=== PATIENT | male | born 1955 ===

== ENCOUNTER → 2020-07-03 18:08 | Outpatient (CLI) | payer OTHER ==
[2020-07-03 19:06] LABS: BASOPHILS 0.9 % (0-2); EOSINOPHILS 7.8 % (0-7); HEMATOCRIT 39.8 % (42.0-54.0); HEMOGLOBIN 12.9 g/dL (13.5-17.5); LYMPHOCYTE ABS# 0.84 10x3/uL (1.32-3.57); LYMPHOCYTES 19.3 % (15-50); MCHC 32.4 g/dL (31.0-37.0); MCV 92.6 fL (80.0-100.0); MEAN PLATELET VOLUME 11.7 fL (7.4-10.4); MONOCYTES 16.1 % (2-11); NEUTROPHIL ABS# 2.43 10x3/uL (1.78-5.38); NEUTROPHILS 55.9 % (40-80); PLATELET COUNT 217 10x3/uL (130-400); RDW 16.8 % (11.5-14.5); WBC 4.4 10x3/uL (4.8-10.8)
[2020-07-03 19:21] LABS: ANION GAP 8.7 mmol/L (8-16); CALCIUM 7.9 mg/dL (8.5-10.1); CARBON DIOXIDE 29.3 mmol/L (21.0-32.0); CREATININE - SERUM 1.1 mg/dL (0.6-1.3)
== END | disposition home or self-care (01) ==
LOC: D.LABREF 18:08
PROVIDERS: ATTEND Student in an Organized Health Care Education/Training Program
DX: M46.22 Osteomyelitis of vertebra, cervical region (principal); L02.11 Cutaneous abscess of neck; K83.01 Primary sclerosing cholangitis; Z79.2 Long term (current) use of antibiotics

== ENCOUNTER → 2020-07-04 13:38 | Outpatient (CLI) | payer OTHER | END | disposition home or self-care (01) | LOC: D.LABREF 13:38 | PROVIDERS: ATTEND Student in an Organized Health Care Education/Training Program | DX: M46.22 Osteomyelitis of vertebra, cervical region (principal); L02.11 Cutaneous abscess of neck; Z79.2 Long term (current) use of antibiotics ==

== ENCOUNTER → 2020-07-08 18:20 | Outpatient (CLI) | payer OTHER ==
[2020-07-08 19:27] LABS: BASOPHILS 1.8 % (0-2); EOSINOPHILS 18.9 % (0-7); HEMATOCRIT 39.2 % (42.0-54.0); HEMOGLOBIN 12.8 g/dL (13.5-17.5); IMMATURE GRANULOCYTES 0.2 % (0-5); LYMPHOCYTE ABS# 0.88 10x3/uL (1.32-3.57); MCH 29.9 pg (26.0-34.0); MCHC 32.7 g/dL (31.0-37.0); MCV 91.6 fL (80.0-100.0); MEAN PLATELET VOLUME 12.3 fL (7.4-10.4); MONOCYTES 19.5 % (2-11); NEUTROPHIL ABS# 1.74 10x3/uL (1.78-5.38); NEUTROPHILS 39.6 % (40-80); RBC 4.28 10x6/uL (4.20-6.10); RDW 16.6 % (11.5-14.5); WBC 4.4 10x3/uL (4.8-10.8)
[2020-07-08 19:29] LABS: PLATELET COUNT 154 10x3/uL (130-400)
[2020-07-08 19:38] LABS: CALC OSMOLALITY 280 mosm/kg (275-300); CALCIUM 7.6 mg/dL (8.5-10.1); CARBON DIOXIDE 26.9 mmol/L (21.0-32.0); CHLORIDE - SERUM 105 mmol/L (98-107); CREATININE - SERUM 0.9 mg/dL (0.6-1.3); GLUCOSE 78 mg/dL (74-106); POTASSIUM - SERUM 3.9 mmol/L (3.5-5.1); SODIUM 142 mmol/L (136-145); UREA NITROGEN 9 mg/dL (7-18); VANCOMYCIN - TROUGH 12.4 ug/mL (10.0-20.0); eGFR NON AFRICAN AMERICAN 90 mL/min (90-120)
== END | disposition home or self-care (01) ==
LOC: D.LABREF 18:20
PROVIDERS: ATTEND Student in an Organized Health Care Education/Training Program
DX: M46.22 Osteomyelitis of vertebra, cervical region (principal); L02.11 Cutaneous abscess of neck; K74.3 Primary biliary cirrhosis; Z79.01 Long term (current) use of anticoagulants

== ENCOUNTER → 2020-07-22 18:38 | Outpatient (CLI) | payer OTHER ==
[2020-07-22 19:39] LABS: ANION GAP 10.8 mmol/L (8-16); CALCIUM 7.3 mg/dL (8.5-10.1); CARBON DIOXIDE 26.8 mmol/L (21.0-32.0); CREATININE - SERUM 1.3 mg/dL (0.6-1.3); POTASSIUM - SERUM 3.6 mmol/L (3.5-5.1)
[2020-07-22 20:04] LABS: HEMATOCRIT 39.4 % (42.0-54.0); LYMPHOCYTE ABS# 3.03 10x3/uL (1.32-3.57); MCH 30.2 pg (26.0-34.0); MCV 91.4 fL (80.0-100.0); MEAN PLATELET VOLUME 11.7 fL (7.4-10.4); NEUTROPHIL ABS# 4.95 10x3/uL (1.78-5.38); PLATELET COUNT 217 10x3/uL (130-400); RBC 4.31 10x6/uL (4.20-6.10); RDW 17.9 % (11.5-14.5)
[2020-07-22 20:54] LABS: BASOPHILS 1 % (0-2); EOSINOPHILS 31 % (0-7); LYMPHOCYTES 24 % (15-50); MONOCYTES 6 % (2-11); NEUTROPHILS 38 % (40-80); PLATELET ESTIMATE NORMAL
== END | disposition home or self-care (01) ==
LOC: D.LABREF 18:38
PROVIDERS: ATTEND Student in an Organized Health Care Education/Training Program
DX: M46.22 Osteomyelitis of vertebra, cervical region (principal); L02.11 Cutaneous abscess of neck; Z79.2 Long term (current) use of antibiotics

== ENCOUNTER → 2020-07-29 13:58 | Outpatient (CLI) | payer OTHER ==
[2020-07-29 14:52] LABS: BASOPHILS 2.1 % (0-2); EOSINOPHILS 38.2 % (0-7); HEMATOCRIT 36.9 % (42.0-54.0); HEMOGLOBIN 12.4 g/dL (13.5-17.5); IMMATURE GRANULOCYTES 0.4 % (0-5); LYMPHOCYTE ABS# 1.44 10x3/uL (1.32-3.57); LYMPHOCYTES 13.6 % (15-50); MCH 29.7 pg (26.0-34.0); MCHC 33.6 g/dL (31.0-37.0); MCV 88.3 fL (80.0-100.0); MEAN PLATELET VOLUME 12.5 fL (7.4-10.4); MONOCYTES 10.5 % (2-11); NEUTROPHIL ABS# 3.71 10x3/uL (1.78-5.38); NEUTROPHILS 35.2 % (40-80); PLATELET COUNT 191 10x3/uL (130-400); RBC 4.18 10x6/uL (4.20-6.10); RDW 18.5 % (11.5-14.5); WBC 10.6 10x3/uL (4.8-10.8)
[2020-07-29 15:08] LABS: ANION GAP 10.7 mmol/L (8-16); CARBON DIOXIDE 26.1 mmol/L (21.0-32.0); CREATININE - SERUM 1.1 mg/dL (0.6-1.3); POTASSIUM - SERUM 3.8 mmol/L (3.5-5.1); VANCOMYCIN - TROUGH 21.9 ug/mL (10.0-20.0)
== END | disposition home or self-care (01) ==
LOC: D.LABREF 13:58
PROVIDERS: ATTEND Student in an Organized Health Care Education/Training Program
DX: M46.22 Osteomyelitis of vertebra, cervical region (principal); L02.11 Cutaneous abscess of neck; Z79.2 Long term (current) use of antibiotics; K83.01 Primary sclerosing cholangitis

== ENCOUNTER → 2020-08-05 11:25 | Outpatient (CLI) | payer OTHER ==
[2020-08-05 12:37] LABS: HEMATOCRIT 40.7 % (42.0-54.0); HEMOGLOBIN 13.3 g/dL (13.5-17.5); MCH 30.2 pg (26.0-34.0); MCHC 32.7 g/dL (31.0-37.0); MCV 92.4 fL (80.0-100.0); MEAN PLATELET VOLUME 9.9 fL (7.4-10.4); RBC 4.41 10x6/uL (4.20-6.10); RDW 21.5 % (11.5-14.5); WBC 9.4 10x3/uL (4.8-10.8)
[2020-08-05 12:38] LABS: PLATELET COUNT 322 10x3/uL (130-400)
[2020-08-05 12:47] LABS: ANION GAP 12.6 mmol/L (8-16); CALCIUM 8.4 mg/dL (8.5-10.1); CARBON DIOXIDE 26.4 mmol/L (21.0-32.0); CREATININE - SERUM 1.1 mg/dL (0.6-1.3); VANCOMYCIN - TROUGH 23.3 ug/mL (10.0-20.0)
[2020-08-05 14:18] LABS: EOSINOPHILS 20 % (0-7); LYMPHOCYTES 13 % (15-50); MONOCYTES 12 % (2-11); NEUTROPHILS 52 % (40-80); PLATELET ESTIMATE NORMAL
== END | disposition home or self-care (01) ==
LOC: D.LABREF 11:25
PROVIDERS: ATTEND Student in an Organized Health Care Education/Training Program
DX: M46.22 Osteomyelitis of vertebra, cervical region (principal); L02.11 Cutaneous abscess of neck; K83.01 Primary sclerosing cholangitis; Z79.02 Long term (current) use of antithrombotics/antiplatelets

== ENCOUNTER → 2020-08-12 16:05 | Outpatient (CLI) | payer OTHER ==
[2020-08-12 16:40] LABS: BASOPHILS 0.2 % (0-2); EOSINOPHILS 2.5 % (0-7); HEMATOCRIT 38.2 % (42.0-54.0); HEMOGLOBIN 12.6 g/dL (13.5-17.5); MCHC 32.9 g/dL (31.0-37.0); MCV 94.2 fL (80.0-100.0); MEAN PLATELET VOLUME 10.2 fL (7.4-10.4); MONOCYTES 16.7 % (2-11); NEUTROPHILS 68.6 % (40-80); PLATELET COUNT 352 10x3/uL (130-400); RBC 4.06 10x6/uL (4.20-6.10); WBC 7.4 10x3/uL (4.8-10.8)
[2020-08-12 16:54] LABS: ANION GAP 13.8 mmol/L (8-16); CALCIUM 8.6 mg/dL (8.5-10.1); CARBON DIOXIDE 22.8 mmol/L (21.0-32.0); CREATININE - SERUM 1.1 mg/dL (0.6-1.3); POTASSIUM - SERUM 4.6 mmol/L (3.5-5.1); VANCOMYCIN - TROUGH 12.2 ug/mL (10.0-20.0)
== END | disposition home or self-care (01) ==
LOC: D.LABREF 16:05
PROVIDERS: ATTEND Student in an Organized Health Care Education/Training Program
DX: M86.9 Osteomyelitis, unspecified (principal); Z79.2 Long term (current) use of antibiotics

== ENCOUNTER → 2020-08-19 13:01 | Outpatient (CLI) | payer OTHER ==
[2020-08-19 14:22] LABS: BASOPHILS 0.6 % (0-2); EOSINOPHILS 12.5 % (0-7); HEMATOCRIT 39.3 % (42.0-54.0); HEMOGLOBIN 12.9 g/dL (13.5-17.5); LYMPHOCYTES 18.5 % (15-50); MCHC 32.8 g/dL (31.0-37.0); MCV 94.6 fL (80.0-100.0); MEAN PLATELET VOLUME 10.6 fL (7.4-10.4); MONOCYTES 19.6 % (2-11); NEUTROPHILS 48.8 % (40-80); PLATELET COUNT 285 10x3/uL (130-400); RBC 4.15 10x6/uL (4.20-6.10); RDW 19.9 % (11.5-14.5); WBC 5.6 10x3/uL (4.8-10.8)
[2020-08-19 14:41] LABS: ANION GAP 10.6 mmol/L (8-16); CALCIUM 8.1 mg/dL (8.5-10.1); CARBON DIOXIDE 26.5 mmol/L (21.0-32.0); CREATININE - SERUM 1.3 mg/dL (0.6-1.3); POTASSIUM - SERUM 4.1 mmol/L (3.5-5.1); VANCOMYCIN - TROUGH 17.4 ug/mL (10.0-20.0)
== END | disposition home or self-care (01) ==
LOC: D.LABREF 13:01
PROVIDERS: ATTEND Student in an Organized Health Care Education/Training Program
DX: M86.9 Osteomyelitis, unspecified (principal); L02.11 Cutaneous abscess of neck

== ENCOUNTER → 2020-08-26 18:12 | Outpatient (CLI) | payer OTHER ==
[2020-08-26 19:23] LABS: EOSINOPHILS 1.5 % (0-7); HEMATOCRIT 38.5 % (42.0-54.0); HEMOGLOBIN 12.7 g/dL (13.5-17.5); IMMATURE GRANULOCYTES 0.2 % (0-5); LYMPHOCYTE ABS# 0.67 10x3/uL (1.32-3.57); LYMPHOCYTES 12.9 % (15-50); MCH 31.4 pg (26.0-34.0); MCV 95.3 fL (80.0-100.0); MEAN PLATELET VOLUME 12.8 fL (7.4-10.4); MONOCYTES 12.7 % (2-11); NEUTROPHIL ABS# 3.71 10x3/uL (1.78-5.38); NEUTROPHILS 71.7 % (40-80); PLATELET COUNT 283 10x3/uL (130-400); RBC 4.04 10x6/uL (4.20-6.10); RDW 17.7 % (11.5-14.5); WBC 5.2 10x3/uL (4.8-10.8)
[2020-08-26 19:35] LABS: SODIUM 140 mmol/L (136-145)
[2020-08-26 19:36] LABS: CALC OSMOLALITY 278 mosm/kg (275-300); CALCIUM 8.3 mg/dL (8.5-10.1); CARBON DIOXIDE 25.4 mmol/L (21.0-32.0); CHLORIDE - SERUM 106 mmol/L (98-107); GLUCOSE 92 mg/dL (74-106); POTASSIUM - SERUM 4.8 mmol/L (3.5-5.1); UREA NITROGEN 13 mg/dL (7-18); VANCOMYCIN - TROUGH 16.6 ug/mL (10.0-20.0); eGFR NON AFRICAN AMERICAN 80 mL/min (90-120)
== END | disposition home or self-care (01) ==
LOC: D.LABREF 18:12
PROVIDERS: ATTEND Student in an Organized Health Care Education/Training Program
DX: M86.9 Osteomyelitis, unspecified (principal)